=== PATIENT | female | born 1980 | race Two or more races ===

== ENCOUNTER 2019-04-12 15:00 | Inpatient (IN) | payer OTHER ==
[~2019-04-12] VITALS: Ht 149.9 cm; Wt 73.9 kg
[2019-04-12] MEDS ORDERED: SINGULAIR10 MG PO (15:47)
[2019-04-12] MEDS ORDERED: VERAPAM PO (15:47)
[2019-04-15] MEDS ORDERED: VERAPAMIL HCL80 MG PO (08:07)
== END 2019-04-17 12:18 | disposition home or self-care (01) | DRG 743 ==
LOC: ADM 15:00 → EDSTATUS 15:00 → OB/GYN 04-14 10:13 → O/R 04-14 10:13 → SURH 04-14 10:30 → OB/GYN 04-14 16:35
PROVIDERS: ADMIT Obstetrics & Gynecology
PROC: 0UT70ZZ Resection of Bilateral Fallopian Tubes, Open Approach (ICD-10-PCS; 2019-04-14)
PROC: 0UT90ZZ Resection of Uterus, Open Approach (ICD-10-PCS; principal; 2019-04-14 10:30)
DX: N83.8 Other noninflammatory disorders of ovary, fallopian tube and broad ligament (principal); N83.292 Other ovarian cyst, left side; N72 Inflammatory disease of cervix uteri